=== PATIENT | male | born 1970 | race Caucasian/White ===

== ENCOUNTER 2018-02-11 15:46 | Emergency (ER) | payer SELFPAY ==
[~2018-02-11] VITALS: Ht 175.3 cm; Wt 77.0 kg
[2018-02-11] MEDS ORDERED: LIDOCAINE HCL 1%/EPI 1:200,000 30 ML VIAL MC ONE (16:15)
[2018-02-11 19:28] VITALS: BP 142/94
[2018-02-11] MEDS ORDERED: BACITRACIN ZINC OINT UDPKT TOP ONE (19:30)
== END 2018-02-11 19:29 | disposition home or self-care (01) ==
LOC: ER 16:30
DX: L02.512 Cutaneous abscess of left hand (principal); L72.3 Sebaceous cyst; F12.10 Cannabis abuse, uncomplicated
CPT/HCPCS: 10060; 99283; Z7610

== ENCOUNTER 2019-02-18 10:37 | Emergency (ER) | payer MEDICAID ==
[~2019-02-18] VITALS: Ht 175.3 cm; Wt 82.0 kg
[2019-02-18 12:50] VITALS: BP 138/74
== END 2019-02-18 13:00 | disposition home or self-care (01) ==
LOC: ER 10:37
DX: H10.9 Unspecified conjunctivitis (principal); L03.213 Periorbital cellulitis; F12.10 Cannabis abuse, uncomplicated; Z98.890 Other specified postprocedural states
CPT/HCPCS: 99283

== ENCOUNTER 2020-04-13 14:08 | Inpatient (IN) | payer MEDICAID ==
[~2020-04-13] VITALS: Ht 170.2 cm; Wt 87.1 kg
[2020-04-13] MEDS ORDERED: SODIUM CHLORIDE 0.9% 1,000 ML IV ONE (15:46)
[2020-04-13] MEDS ORDERED: PIPERACILLIN/TAZ 3.375G PREMIX 50 ML IV ONE (16:00)
[2020-04-13] MEDS ORDERED: VANCOMYCIN 1 G PREMIX 200 ML IV ONE (16:00)
[2020-04-13] MEDS ORDERED: KETOROLAC 30MG/ML VIAL IV ONE (16:00)
[2020-04-13 16:29] LABS: BASOPHILS % 0.2 % (0.0-2.0); HEMATOCRIT. 43.3 % (42.0-52.0); HEMOGLOBIN. 15.1 g/dL (14.0-18.0); LYMPHOCYTES % 31.1 % (20.0-50.0); MEAN CORPUSCULAR HEMOGLOBIN 32.5 pg (28.0-32.0); MEAN CORPUSCULAR VOLUME 93.1 fL (80.0-94.0); MEAN PLATELET VOLUME 8.8 fl (7.4-10.4); MONOCYTES % 8.1 % (2.0-8.0); NEUTROPHILS % 57.6 % (40.0-76.0); PLATELET 191 x1000/uL (130-400); RED BLOOD CELL COUNT 4.65 mill/uL (4.7-6.1); RED CELL DISTRIBUTION WIDTH 13.3 % (11.6-14.6)
[2020-04-13 16:35] LABS: CHLORIDE 103 mEq/L (98-107)
[2020-04-13 16:38] LABS: INR 1.1; PROTHROMBIN TIME 11.1 sec (9.6-11.0)
[2020-04-13 17:23] LABS: CLARITY URINE CLEAR (CLEAR); COLOR URINE YELLOW (YELLOW); KETONES URINE NEGATIVE (NEGATIVE); LEUKOCYTE ESTERASE URINE NEGATIVE (NEGATIVE); NITRITE URINE NEGATIVE (NEGATIVE); OCCULT BLOOD URINE NEGATIVE (NEGATIVE); PROTEIN URINE NEGATIVE (NEGATIVE); SPECIFIC GRAVITY URINE 1.009 (1.005-1.030); UROBILINOGEN URINE 0.2 E.U./dL (0.2-1.0)
[2020-04-13] MEDS ORDERED: GUAIFENESIN 200MG/10ML SUGAR FREE UDC PO PRN (22:00)
[2020-04-13] MEDS ORDERED: NA PHOS,M-B/NA PHOS,DI-BA ENEMA 118ML PR PRN (22:00)
[2020-04-13] MEDS ORDERED: MORPHINE SULFATE 2 MG/ML CPJ (NOT FOR IM USE) IV PRN (22:00)
[2020-04-13] MEDS ORDERED: PIPERACILLIN/TAZ 3.375G PREMIX 50 ML IV SCH (22:00)
[2020-04-13] MEDS ORDERED: DOCUSATE SODIUM 100MG CAPSULE PO PRN (22:00)
[2020-04-13] MEDS ORDERED: HYDROCODONE/ACETAMINOPHEN 5/325MG TABLET PO PRN (22:00)
[2020-04-13] MEDS ORDERED: LORAZEPAM 2MG/ML CPJ IV PRN (22:00)
[2020-04-13] MEDS ORDERED: IPRATROPIUM/ALBUTEROL 0.5-3(2.5)MG/3ML NEB NEB PRN (22:00)
[2020-04-13] MEDS ORDERED: ACETAMINOPHEN 325MG TABLET PO PRN (22:00)
[2020-04-13] MEDS ORDERED: MAGNESIUM/ALUMINUM HYDROXIDE/SIMETHICONE 30ML UDC PO PRN (22:00)
[2020-04-13] MEDS ORDERED: ONDANSETRON HCL 4MG/2ML INJ IV PRN (22:00)
[2020-04-13] MEDS ORDERED: CLONIDINE 0.1MG TABLET PO PRN (22:00)
[2020-04-13] MEDS ORDERED: DIPHENHYDRAMINE 50MG/ML VIAL IV PRN (22:00)
[2020-04-13 22:50] VITALS: BP 148/86
[2020-04-13] MEDS ORDERED: SODIUM CHLORIDE 0.45% 1,000 ML IV SCH (23:00)
[2020-04-14] VITALS: BP 148/86
[2020-04-14 00:48] LABS: CHLORIDE 106 mEq/L (98-107)
[2020-04-14] MEDS: PIPERACILLIN/TAZOBACTAM 3.375 G in DEXT 5% WATER 100 ML IV SCH ×2 (02:25→02:26)
[2020-04-14 04:00] VITALS: BP 149/96
[2020-04-14] MEDS ORDERED: VANCOMYCIN 1500MG in DEXTROSE 5% WATER 250ML IV SCH ×2 (04:00→18:00)
[2020-04-14 06:41] LABS: BASOPHILS % 0.3 % (0.0-2.0); EOSINOPHILS % 6.2 % (0.0-5.0); HEMATOCRIT. 41.9 % (42.0-52.0); HEMOGLOBIN. 14.7 g/dL (14.0-18.0); LYMPHOCYTES % 29.2 % (20.0-50.0); MEAN CORPUSCULAR HEMOGLOBIN 32.6 pg (28.0-32.0); MONOCYTES % 8.7 % (2.0-8.0); NEUTROPHILS % 55.6 % (40.0-76.0); PLATELET 184 x1000/uL (130-400); RED BLOOD CELL COUNT 4.51 mill/uL (4.7-6.1); RED CELL DISTRIBUTION WIDTH 13.4 % (11.6-14.6)
[2020-04-14 06:47] LABS: CHLORIDE 106 mEq/L (98-107)
[2020-04-14 06:57] LABS: LDL CHOLESTEROL 96 mg/dL (5-100)
[2020-04-14 06:59] LABS: HDL CHOLESTEROL 28 mg/dL (40-59)
[2020-04-14 08:00] VITALS: BP_SYST 137; BP_SYST 150; BP_DIAS 112; BP_DIAS 76
[2020-04-14] MEDS ORDERED: ENOXAPARIN 40MG/0.4ML SYR SUBCUT SCH (09:00)
[2020-04-14] MEDS ORDERED: ASPIRIN 81MG EC TABLET PO SCH (09:00)
[2020-04-14 10:29] VITALS: BP 150/112
[2020-04-14] MEDS ORDERED: PIPERACILLIN/TAZOBACTAM 3.375 G in DEXT 5% WATER 100 ML IV SCH ×2 (16:00→18:00)
== END 2020-04-14 11:15 | disposition home or self-care (01) | DRG 383 ==
LOC: ER 14:08 → EDBEDREQSVC 16:04 → EDBEDREQ 16:04 → EDBEDREQTM 16:04 → EDBEDREQ 18:52 → ENRESERV 21:54
PROVIDERS: ADMIT Internal Medicine; ATTEND Internal Medicine
DX: L03.114 Cellulitis of left upper limb (principal); E86.0 Dehydration; I10 Essential (primary) hypertension; I88.9 Nonspecific lymphadenitis, unspecified; R65.10 Systemic inflammatory response syndrome (SIRS) of non-infectious origin without acute organ dysfunction; W57.XXXA Bitten or stung by nonvenomous insect and other nonvenomous arthropods, initial encounter; Y93.89 Activity, other specified; Y92.89 Other specified places as the place of occurrence of the external cause; Y99.8 Other external cause status; Z79.899 Other long term (current) drug therapy; Z79.82 Long term (current) use of aspirin
CPT/HCPCS: 36415; 71045; 80048; 80053; 80061; 81003; 83605; 84145; 84484; 85025; 93005; 99285; J1650; J1885; J2543; J3370; J7030; J7060

== ENCOUNTER 2021-10-09 17:42 | Emergency (ER) | payer MEDICAID ==
[~2021-10-09] VITALS: Ht 175.3 cm; Wt 89.0 kg
[2021-10-09 17:43] VITALS: BP 122/81
[2021-10-09] MEDS ORDERED: METO-385 PO (17:51)
[2021-10-09] MEDS ORDERED: LISI20TA31 PO (17:51)
[2021-10-09] MEDS ORDERED: ATOR40TA70 PO (17:51)
[2021-10-09] MEDS ORDERED: ASPI-1406 PO (17:51)
[2021-10-09] MEDS ORDERED: AMLO10TA80 PO (17:51)
[2021-10-09] MEDS ORDERED: CLON0.1T PO (17:51)
[2021-10-09] MEDS ORDERED: HYDR25TA PO (17:51)
[2021-10-09] MEDS ORDERED: FOLI-43 PO (17:51)
[2021-10-09] MEDS ORDERED: ERGO1250 PO (17:51)
[2021-10-09] MEDS ORDERED: LOSA1TAB37 PO (17:51)
[2021-10-09 18:39] LABS: BASOPHILS % 0.6 % (0.0-2.0); EOSINOPHILS % 1.7 % (0.0-5.0); HEMATOCRIT. 38.7 % (42.0-52.0); HEMOGLOBIN. 12.9 g/dL (14.0-18.0); LYMPHOCYTES % 37.4 % (20.0-50.0); MEAN CORPUSCULAR HEMOGLOBIN 30.8 pg (28.0-32.0); MEAN CORPUSCULAR VOLUME 92.1 fL (80.0-94.0); MEAN PLATELET VOLUME 8.5 fl (7.4-10.4); MONOCYTES % 7.6 % (2.0-8.0); NEUTROPHILS % 52.7 % (40.0-76.0); PLATELET 244 x1000/uL (130-400)
[2021-10-09 18:45] LABS: CHLORIDE 104 mEq/L (98-107)
== END 2021-10-10 04:33 | disposition left against medical advice (07) ==
LOC: ER 17:42
DX: Z53.21 Procedure and treatment not carried out due to patient leaving prior to being seen by health care provider (principal); R07.9 Chest pain, unspecified; I10 Essential (primary) hypertension; Z98.890 Other specified postprocedural states
CPT/HCPCS: 36415; 71045; 80053; 83690; 83880; 84484; 85025; 93005; Z7610